=== PATIENT | female | born 1980 | race African-American/Black ===

== ENCOUNTER 2019-01-28 21:38 | Emergency (ER) | payer MEDICAID ==
[2019-01-28 22:40] LABS: INR 0.96 (0.5-1.4)
[2019-01-28 22:43] LABS: DDIMER QUANT < 100 ng/mL (100-400); HEMATOCRIT 34.9 % (41.0-60); MEAN CELL VOLUME 70.5 fl (81-100); MEAN CORPUSCULAR HEMOGLOBIN 22.2 pg (27.0-31.0); MEAN CORPUSCULAR HGB CONC 31.4 pg (28.0-36.0); PLATELET COUNT 308 Th/cmm (150-400); RED BLOOD COUNT 4.95 Mil/cmm (3.80-5.10); RED CELL DISTRIBUTION WIDTH 13.6 % (11.5-20.0); WHITE BLOOD COUNT 10.7 Th/cmm (4.8-10.8)
[2019-01-28 22:46] LABS: ALB/GLOB RATIO 1.3 (1.0-1.8); ALBUMIN 4.1 gm/dL (3.7-5.3); ALKALINE PHOSPHATASE 69 U/L (34-104); ANION GAP 13.3 (7.0-16.0); BILIRUBIN,TOTAL 0.4 mg/dL (0.3-1.0); BUN - UREA NITROGEN 17 mg/dL (7-25); CALCIUM SERUM 8.9 mg/dL (8.6-10.3); CARBON DIOXIDE 23.7 mEq/L (21.0-31.0); CHLORIDE 106 mEq/L (98-107); CHOLESTEROL 118 mg/dL (<200); CREATININE - SERUM 0.9 mg/dL (0.6-1.2); CREATININE KINASE 49 U/L (30-223); GFR AFRICAN-AMERICAN > 60.0 ml/min (>90); GFR NON AFRICAN-AMERICAN > 60.0 ml/min; GLUCOSE 93 mg/dL (70-105); HDL -HIGH DENSITY LIPOPROTEIN 44 mg/dL (23-92); SGOT 12 U/L (13-39); SGPT/ALT 8 U/L (7-52); SODIUM SERUM 139 mEq/L (136-145); TOTAL PROTEIN,SERUM 7.3 gm/dL (6.0-8.3); TRIGLYCERIDES 87 mg/dL (<150)
[2019-01-28 23:29] LABS: BAND NEUTROPHILE 2 % (0-10); EOSINOPHIL 6 % (0-5); LYMPHOCYTE 48 % (20-50); MONOCYTE 4 % (2-10); NEUTROPHILS 40 % (40-80); PLATELET ESTIMATE ADEQUATE (NORMAL)
--- NOTE | 2019-01-29 12:13 | ER Physician Documentation ---
DATE OF SERVICE: 01/28/2019 HISTORY OF PRESENT ILLNESS: This is a 38-year-old female patient who presents to the Emergency Room with onset x 2 days of intermittent left shoulder pain and radiating to the chest and neck. This patient denies any injuries, denies any trauma. The patient has no other complaints. The patient denies headaches, sore throat, neck pain, chest pain. Denies exertional chest pain, no shortness of breath, no abdominal pain, nausea, vomiting, diarrhea, constipation, fever or chills. The patient is eating and urinating well. PAST MEDICAL HISTORY: None. MEDICATIONS: Per nurse's notes. FAMILY HISTORY: Per nurse's notes. REVIEW OF SYSTEMS: Otherwise, noncontributory. PHYSICAL EXAMINATION: GENERAL: Found the patient to be in no acute distress, alert and oriented x 3. VITAL SIGNS: Afebrile. Vital signs stable. HEENT: Unremarkable. NECK: Supple. No cervical tenderness. No meningeal signs. No chest wall tenderness. CARDIOVASCULAR: Regular rate and rhythm. LUNGS: Clear with good breath sounds bilaterally. ABDOMEN: Soft, nontender, normal active bowel sounds. No pulsatile masses. EXTREMITIES: No edema, clubbing or cyanosis. Left shoulder is nontender and has full range of motion with no evidence of septic joint, no ligament instability. Good motor, tone and strength. Good neurovascular function. DIAGNOSTIC DATA: EKG showed normal sinus rhythm, nonspecific ST-T changes. Lab tests were unremarkable. MEDICAL DECISION MAKING: The patient was advised admission for chest pain and shoulder pain, but refused admission and chose to sign out against medical advice. Aftercare instructions were given. The patient was told to return to the Emergency Room as needed if signs and symptoms should recur and/or get worse and/or any other new signs or symptoms should occur. Aftercare instructions given for all the above diagnoses. The patient has been advised to be referred to product introduction manager as soon as possible and product safety and standards engineer as soon as possible. Otherwise, followup care with primary physician today or as needed. Return to Emergency Room if concern. Aftercare instructions given. DIAGNOSES: Shoulder pain, chest pain, neck pain and possible angina pectoris. The patient was asymptomatic upon discharge and leaving against medical advice. [facility]# [id number]
== END 2019-01-28 23:54 | disposition left against medical advice (07) ==
LOC: ER 21:38
DX: M25.512 Pain in left shoulder (principal); M54.2 Cervicalgia; R07.89 Other chest pain
CPT/HCPCS: 36415-UA; 80053-TC; 80061-TC; 82550-TC; 83880-TC; 84484-TC; 84703-TC; 85007-TC; 85025-TC; 85379-TC; 85610-TC; 93005; 94760; Z7502